=== PATIENT | male | born 1965 | race Caucasian/White ===

== ENCOUNTER 2019-01-11 19:18 | Emergency (ER) | payer SELFPAY ==
--- NOTE | 2019-01-11 19:32 | EDM.PDOC ---
ED HPI GENERAL MEDICAL PROBLEM - General Stated Complaint: RIGHT PINKY FINGER;CUT Time Seen by Provider: 01/11/19 19:32 - History of Present Illness INITIAL COMMENTS - FREE TEXT/NARRATIVE: Pt presents with bleeding from right little finger, pt shut in car door. - Related Data Allergies Allergy/AdvReac Type Severity Reaction Status Date / Time No Known Allergies Allergy Verified 01/11/19 20:04 ED ROS GENERAL - Review of Systems Review Of Systems: See Below Constitutional: Reports: No Symptoms HEENT: Reports: No Symptoms Respiratory: Reports: No Symptoms Cardiovascular: Reports: No Symptoms Endocrine: Reports: No Symptoms GI/Abdominal: Reports: No Symptoms : Reports: No Symptoms Musculoskeletal: Reports: Other (pain right little finger ) Skin: Reports: Other (laceration right little finger. ) Neurological: Reports: No Symptoms Psychiatric: Reports: No Symptoms Hematologic/Lymphatic: Reports: No Symptoms Immunologic: Reports: No Symptoms ED EXAM, GENERAL - Physical Exam Exam: See Below Free Text/Narrative:: x ray noted comminuted displaced distal phalanx fracture. Digital block right little finger 2% lidocaine w/o complications. suture laceration est 1 cm 2 sutures 4-0 ethilon, finger nail removed w/o comolication. Non adherent bandage placed on finger with splint. Pt tolerated procedure w/o complication. total lidocaine used 3.5 cc. Exam Limited By: No Limitations General Appearance: Alert, WD/WN, No Apparent Distress Ears: Normal External Exam Nose: Normal Inspection Throat/Mouth: Normal Inspection Head: Atraumatic, Normocephalic Neck: Normal Inspection Respiratory/Chest: No Respiratory Distress Cardiovascular: Normal Peripheral Pulses Neurological: Alert, Oriented Psychiatric: Normal Affect, Normal Mood Skin Exam: Warm, Dry, Intact Lymphatic: No Adenopathy Course - Orders/Labs/Meds Meds: Medications Discontinued Medications Generic Name Dose Route Start Last Admin Trade Name Freq PRN Reason Stop Dose Admin Hydrocodone Bitart/Acetaminophen 2 packet 01/11/19 20:25 Take Home: Acetaminophen/Hydrocodone 325-10mg PO 01/11/19 20:26 ONETIME ONE Lidocaine Confirm 01/11/19 20:02 01/11/19 20:00 Xylocaine-Mpf 2% Administered 01/11/19 20:03 Not Given Dose 5 ml .ROUTE .STK-MED ONE Lidocaine 5 ml 01/11/19 19:57 01/11/19 20:00 Xylocaine-Mpf 2% INJECT 01/11/19 19:58 5 ml ONETIME ONE Administration Lidocaine HCl 10 ml 01/11/19 19:47 Xylocaine-Mpf 2% (Sterile-Phill) INJECT 01/11/19 19:48 ONETIME ONE Departure - Departure Time of Disposition: 20:32 Disposition: Home, Self-Care 01 Condition: Good Clinical Impression: Phalanx, distal fracture of finger - Discharge Information Instructions: Cast or Splint Care, Adult, [id number], Finger Fracture, Adult , [id number] Care Plan Goals: sutures out in 10 days, can elle 6-8 wks for fracture to heal. Follow up with pc in the next week for continued care and ortho evaluation as needed.
[2019-01-11] MEDS ORDERED: Lidocaine 2% 10 ML Amp INJECT ONE (19:47)
[2019-01-11] MEDS ORDERED: Lidocaine 2% 5 ML SDV INJECT ONE (19:57)
[2019-01-11] MEDS ORDERED: Lidocaine 2% 5 ML SDV ONE (20:02)
--- NOTE | 2019-01-11 20:17 | CR ---
[id number] RAD/RAD Fingers Right EXAM: RIGHT FINGERS 3 VIEWS INDICATION: SHUT FINGERS IN CAR DOOR COMPARISON: None. DISCUSSION: There is an acute mildly comminuted and displaced/distracted distal second phalanx fracture. No other osseous abnormality is identified. IMPRESSION: 1. Acute comminuted and displaced distal fifth phalanx fracture. Ivan Delgado MD 01/11/192015 Thank you for allowing us to participate in the care of your patient.
[2019-01-11] MEDS ORDERED: Take Home: Acetaminophen/HYDROcodone 325-10 MG, 5 Tab Pack PO ONE (20:25)
== END 2019-01-11 20:47 | disposition home or self-care (01) ==
LOC: VM.ED 19:18
DX: S62.636A Displaced fracture of distal phalanx of right little finger, initial encounter for closed fracture (principal); W22.8XXA Striking against or struck by other objects, initial encounter
CPT/HCPCS: 11730; 73140; 99283; A9270; J2001